=== PATIENT | male | born 1995 | race Caucasian/White ===

== ENCOUNTER 2016-12-07 11:01 | Inpatient (IN) | payer OTHER ==
[~2016-12-07] VITALS: Ht 195.5 cm; Wt 85.3 kg
[2016-12-07 13:09] LABS: BASO % 0.4 % (0.0-1.0); EOS # 0.1 10*3/uL (0.0-0.4); HEMOGLOBIN 13.4 g/dl (14.0-18.0); LYMPH % 23.9 % (27.0-41.0); MEAN CELL VOLUME 88.9 fl (80.0-94.0); MEAN CORPUSCULAR HGB 29.8 pg (27.0-31.0); MEAN CORPUSCULAR HGB CONC 33.5 g/dl (33.0-37.0); MEAN PLATELET VOLUME 9.5 fl (9.6-12.3); MONO # 0.6 10*3/uL (0.1-1.0); NEUT # 5.6 10*3/uL (2.3-7.9); NEUT % 67.5 % (47.0-73.0); PLATELET COUNT AUTOMATED 206 10*3/uL (130-400); RED CELL DISTRI WIDTH 12.7 % (0-14.5); WHITE BLOOD COUNT 8.3 10*3/uL (4.8-10.8)
[2016-12-07 13:17] LABS: PROTHROMBIN TIME 10.9 SECONDS (9.0-12.4)
[2016-12-07 13:23] LABS: ALBUMIN 3.6 gm/dl (3.1-4.5); ALKALINE PHOSPHATASE 71 U/L (45-117); BILIRUBIN, TOTAL 0.3 mg/dl (0.2-1.0); BUN 11 mg/dl (7-24); CARBON DIOXIDE 29 mmol/L (21-32); CHLORIDE 105 mmol/L (98-107); EST GLOM FILT AFRICAN AMERICAN > 60 ml/min; GLUCOSE 108 mg/dL (65-99); POTASSIUM 3.9 mmol/L (3.5-5.1); SGOT/AST 17 IU/L (3-35); SGPT/ALT 18 U/L (12-78); SODIUM 140 mmol/L (136-145); TOTAL PROTEIN 6.6 gm/dL (6.4-8.2)
[2016-12-07 13:30] LABS: BILIRUBIN NEGATIVE (NEGATIVE); BLOOD NEGATIVE (NEGATIVE); CLARITY CLEAR (CLEAR); COLOR YELLOW (YELLOW); GLUCOSE NEGATIVE (NEGATIVE); KETONE TRACE (NEGATIVE); LEUKO ESTERASE NEGATIVE (NEGATIVE); NITRITE NEGATIVE (NEGATIVE); PROTEIN NEGATIVE (NEGATIVE); SPECIFIC GRAVITY 1.025 (1.005-1.030)
[2016-12-07 13:51] LABS: BACTERIA 1+; MUCOUS 2+; URINE REFLEX COMMENT NO (NO)
[2016-12-07 15:07] LABS: URINE AMPHETAMINES < 1000 (1000ng/ml); URINE BARBITURATES < 200 (200ng/ml); URINE COCAINE > 300 (300ng/ml)
[2016-12-07 16:00] VITALS: BP 110/76
[2016-12-07 20:00] VITALS: BP 101/41
[2016-12-08] VITALS: BP 103/42
[2016-12-08 04:00] VITALS: BP 108/45
[2016-12-08 08:00] VITALS: BP 111/57
[2016-12-08 12:00] VITALS: BP 94/51
[2016-12-08 16:00] VITALS: BP 100/48
[2016-12-08 20:00] VITALS: BP 108/48
[2016-12-09] VITALS: BP 100/40
[2016-12-09 08:00] VITALS: BP 106/50
[2016-12-09 12:00] VITALS: BP 108/51
[2016-12-09 16:00] VITALS: BP 136/63
[2016-12-09 20:00] VITALS: BP 118/61
[2016-12-10] VITALS: BP 98/57
[2016-12-10 04:00] VITALS: BP 90/52
[2016-12-10 06:06] LABS: BASO % 0.5 % (0.0-1.0); EOS # 0.2 10*3/uL (0.0-0.4); HEMOGLOBIN 13.3 g/dl (14.0-18.0); IG # 0.1 10*3/uL (0.0-0.1); LYMPH # 2.8 10*3/uL (1.3-4.4); LYMPH % 41.4 % (27.0-41.0); MEAN CELL VOLUME 89.5 fl (80.0-94.0); MEAN CORPUSCULAR HGB 29.8 pg (27.0-31.0); MEAN CORPUSCULAR HGB CONC 33.3 g/dl (33.0-37.0); MEAN PLATELET VOLUME 9.8 fl (9.6-12.3); MONO # 0.6 10*3/uL (0.1-1.0); MONO % 9.5 % (3.0-9.0); NEUT # 2.9 10*3/uL (2.3-7.9); NEUT % 43.6 % (47.0-73.0); PLATELET COUNT AUTOMATED 200 10*3/uL (130-400); RED BLOOD COUNT 4.47 10*6/uL (4.50-5.90); RED CELL DISTRI WIDTH 12.8 % (0-14.5); WHITE BLOOD COUNT 6.6 10*3/uL (4.8-10.8)
[2016-12-10 06:24] LABS: EST GLOM FILT AFRICAN AMERICAN > 60 ml/min
[2016-12-10] MEDS ORDERED: ZOFRAN 4 MG ED2 TAB PO (06:29)
[2016-12-10] MEDS ORDERED: ATARAX,VISTARIL50 MG PO (06:29)
== END 2016-12-10 07:45 | disposition home or self-care (01) | DRG 897 ==
LOC: 4E 11:01
PROVIDERS: Internal Medicine
DX: F11.23 Opioid dependence with withdrawal (principal); R00.1 Bradycardia, unspecified; F17.200 Nicotine dependence, unspecified, uncomplicated; D64.9 Anemia, unspecified; F12.10 Cannabis abuse, uncomplicated; Z71.6 Tobacco abuse counseling

== ENCOUNTER 2017-01-12 11:55 | Inpatient (IN) | payer OTHER ==
[~2017-01-12] VITALS: Ht 195.6 cm; Wt 81.7 kg
[~2017-01-12 11:55] MED LIST: ATARAX,VISTARIL50 MG PO; ZOFRAN 4 MG ED2 TAB PO
[2017-01-12 13:15] VITALS: BP 116/52
[2017-01-12 14:11] LABS: BASO % 0.4 % (0.0-1.0); EOS # 0.1 10*3/uL (0.0-0.4); HEMATOCRIT 40.6 % (42.0-52.0); HEMOGLOBIN 13.5 g/dl (14.0-18.0); LYMPH # 1.7 10*3/uL (1.3-4.4); LYMPH % 21.6 % (27.0-41.0); MEAN CORPUSCULAR HGB 29.6 pg (27.0-31.0); MEAN CORPUSCULAR HGB CONC 33.3 g/dl (33.0-37.0); MEAN PLATELET VOLUME 9.3 fl (9.6-12.3); MONO # 0.8 10*3/uL (0.1-1.0); MONO % 9.9 % (3.0-9.0); NEUT # 5.1 10*3/uL (2.3-7.9); NEUT % 66.7 % (47.0-73.0); PLATELET COUNT AUTOMATED 201 10*3/uL (130-400); RED BLOOD COUNT 4.56 10*6/uL (4.50-5.90); RED CELL DISTRI WIDTH 12.6 % (0-14.5); WHITE BLOOD COUNT 7.7 10*3/uL (4.8-10.8)
[2017-01-12 14:16] LABS: PROTHROMBIN TIME 10.5 SECONDS (9.0-12.4)
[2017-01-12 14:20] LABS: BILIRUBIN NEGATIVE (NEGATIVE); BLOOD NEGATIVE (NEGATIVE); CLARITY CLEAR (CLEAR); COLOR YELLOW (YELLOW); GLUCOSE NEGATIVE (NEGATIVE); KETONE TRACE (NEGATIVE); LEUKO ESTERASE NEGATIVE (NEGATIVE); NITRITE NEGATIVE (NEGATIVE); PH 5.5 (5.0-9.0); PROTEIN NEGATIVE (NEGATIVE); SPECIFIC GRAVITY 1.025 (1.005-1.030)
[2017-01-12 14:25] LABS: ALBUMIN 3.8 gm/dl (3.1-4.5); ALKALINE PHOSPHATASE 75 U/L (45-117); BILIRUBIN, TOTAL 0.5 mg/dl (0.2-1.0); BUN 10 mg/dl (7-24); CARBON DIOXIDE 28 mmol/L (21-32); CHLORIDE 104 mmol/L (98-107); EST GLOM FILT AFRICAN AMERICAN > 60 ml/min; GLUCOSE 93 mg/dL (65-99); POTASSIUM 4.2 mmol/L (3.5-5.1); SGOT/AST 19 IU/L (3-35); SGPT/ALT 17 U/L (12-78); SODIUM 137 mmol/L (136-145); TOTAL PROTEIN 7.3 gm/dL (6.4-8.2)
[2017-01-12 14:27] LABS: BACTERIA TRACE; MUCOUS 2+
[2017-01-12 14:28] LABS: EPITHELIAL CELLS 0-2; RBC 0-2 rbc/hpf (0-2); URINE REFLEX COMMENT NO (NO)
[2017-01-12 14:29] LABS: URINE AMPHETAMINES > 1000 (1000ng/ml); URINE BARBITURATES < 200 (200ng/ml); URINE COCAINE > 300 (300ng/ml)
[2017-01-12 16:00] VITALS: BP 110/50
[2017-01-12 20:00] VITALS: BP 101/42; BP 140/74
[2017-01-13] VITALS: BP 116/57
[2017-01-13 04:00] VITALS: BP 99/47
[2017-01-13 08:00] VITALS: BP 123/53
[2017-01-13 16:00] VITALS: BP 127/68
[2017-01-13 20:00] VITALS: BP 114/55
[2017-01-14 08:00] VITALS: BP 116/64
== END 2017-01-14 12:45 | disposition left against medical advice (07) | DRG 894 ==
LOC: 5E 11:55
PROVIDERS: Internal Medicine
DX: F11.23 Opioid dependence with withdrawal (principal); F17.210 Nicotine dependence, cigarettes, uncomplicated; F14.90 Cocaine use, unspecified, uncomplicated; F15.90 Other stimulant use, unspecified, uncomplicated; R10.84 Generalized abdominal pain; R11.0 Nausea; R19.7 Diarrhea, unspecified; F12.10 Cannabis abuse, uncomplicated